=== PATIENT | male | born 1950 | race Two or more races ===

== ENCOUNTER → 2025-03-23 | Outpatient (CLI) | payer MEDICARE, MEDICAID, SELFPAY ==
--- NOTE | 2025-03-23 11:00 | XR_ITS ---
Examination: CT abdomen, without intravenous contrast. CT pelvis, without intravenous contrast. CT abdomen, with intravenous contrast. CT pelvis, with intravenous contrast. 2-D sagittal coronal reconstructions. Date and time of exam: March 23, 2025, 1232 hours, comparison May 11, 2013 INDICATIONS: Diagnosis hepatomegaly 3 months ago CTDI: vol (mGy) 13.4 DLP: (mGycm) 830 Technique: Multiple 3.0 axial images of the abdomen and pelvis without intravenous contrast, 3.0 mm slice thickness. Multiple 3.0 postcontrast images abdomen and pelvis also obtained, post intravenous injection 60 cc [id number] 2-D sagittal and coronal reconstructions. Low dose protocols were performed. One or more of the following dose reduction techniques were used; automated exposure control, adjustment of the mA and/or KV according to patient size, use of iterative reconstruction technique. Findings: 2 mm pulmonary nodule right middle lobe Liver lobular in contour, no focal liver lesions Gallstones Moderate splenomegaly No pancreatic mass No renal or ureteral calculi, no hydronephrosis Aortic calcification no aneurysm dilatation Normal appendix No ascites No bowel obstruction Prostatomegaly transverse dimension 5.5 cm Contracted urinary bladder Moderate disc narrowing L2-L3 IMPRESSION: 2 mm pulmonary nodule right middle lobe, with the studies baseline recommend 6-month follow-up CT chest without contrast Cirrhosis Moderate splenomegaly Cholelithiasis Normal appendix Moderate prostatomegaly
== END | disposition home or self-care (01) ==
PROVIDERS: PCP Family Medicine; Referring Provider Family Medicine; Visit Provider Family Medicine
DX: R91.1 Solitary pulmonary nodule (principal); K74.60 Unspecified cirrhosis of liver; N40.0 Benign prostatic hyperplasia without lower urinary tract symptoms
CPT/HCPCS: 74178; A4649; Q9967